=== PATIENT | female | born 1985 | race Caucasian/White ===

== ENCOUNTER → 2016-07-13 | Outpatient (CLI) | payer OTHER | LOC: FIMAGING 15:42 | PROVIDERS: ATTEND Nurse Practitioner Women's Health | DX: Z30.431 Encounter for routine checking of intrauterine contraceptive device (principal) ==

== ENCOUNTER 2016-07-24 06:59 | Day surgery (SDC) | payer OTHER ==
--- NOTE | 2016-07-14 16:52 | GHP ---
[f rep st] PREOP HISTORY AND PHYSICAL DATE OF ADMISSION: 07/24/2016 ADMITTING DIAGNOSIS: Displaced IUD. HISTORY OF PRESENT ILLNESS: The patient is a 31-year-old, 2, para 2, who presents to my office on July 13 for IUD followup that was inserted June 08. The patient presents with some discomfort and is concerned she cannot feel the strings. The patient states she had cramping one week after insertion. Now has intermittent random cramping. She did have a normal menses a week ago and last menstrual period 07/06/2016. On pelvic exam, the IUD strings were not seen or palpated. The patient did get an ultrasound in the office that reveals no IUD in the uterus and a simple right ovarian cyst. Negative test. The patient then went on to get a KUB that showed the IUD in the left hemipelvis asymmetrically positioned suggesting possible extrauterine positioning in the peritoneal cavity. Patient is asymptomatic at this time. Denies any cramping or pain and denies any bleeding. The patient is leaving for [place] in 2 days. She paid a lot of money for this trip. Discussed risks and recommend the patient not go to [place]. Patient does understand all the risks and wants to go to [place], and will be back in a few days and will return to the office. Discussed the need for surgical removal of the displaced IUD, she agrees and will have the procedure done when she gets back into town. Pt still desires Mirena IUD and wants it placed under u/s guidance. 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 She says she has always had irregular , heavy menstrual cycles and bleeds for 6 to 7 days. The patient denies a history of abnormal Pap smears. Last pap smear August 2015 was normal. She denies any exposure to sexually transmitted diseases. PAST OB HISTORY: Full-term, uncomplicated vaginal delivery in 2002. Another full-term, uncomplicated vaginal delivery in 2008. PAST MEDICAL HISTORY: Depression. SURGICAL HISTORY: Unremarkable. MEDICATIONS: Fluoxetine. ALLERGIES: No known drug allergies. SOCIAL HISTORY: Patient is . Lives with her and their 2 children. Denies any alcohol, tobacco, or illicit drug use. 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 FAMILY HISTORY: Father has type 2 diabetes, stroke, alcoholism. Mother with hypothyroidism. STUDIES: Pelvic ultrasound showed no IUD within the uterus, and a right simple ovarian cyst. KUB revealed an intrauterine device is present within the left hemipelvis asymmetrically positioned suggesting possible extrauterine positioning, and located within the peritoneal cavity. PHYSICAL EXAMINATION: VITAL SIGNS: On admission, stable. The patient is afebrile. GENERAL: Well-nourished well-developed female, alert, oriented x3. No apparent distress. CARDIOVASCULAR: Regular rate and rhythm. LUNGS: Clear to auscultation. ABDOMEN: Soft, nondistended, nontender. PELVIC EXAM: Deferred. LABS: None. ASSESSMENT: The patient is a 31-year-old, 2, para 2, with a displaced intrauterine device. PLAN: 1. Discussed surgery, diagnostic laparoscopy, its limitations, n.p.o. status, preop and postop recovery. 2. Surgical consents obtained. Discussed risks, benefits, alternatives with the patient including but not limited to, bleeding, infection, damage to surrounding organs. Patient understands all risks at this time and wants to proceed with surgery. 3. Antibiotics risk control specialist to OR. 4. SCDs for DVT prophylaxis. /[id number]/MODL MTDD
[~2016-07-24 06:59] MED LIST: ceFAZolin 2 GM/DEXTROSE 100 ML IV ONE
[2016-07-24] MEDS ORDERED: BUPIVACAINE 0.25% 30 ML SDV ONE (07:09)
[2016-07-24] MEDS ORDERED: SILVER NITRATE APPLICATOR 1 APPL TP ONE (07:09)
[2016-07-24] MEDS ORDERED: LIDOCAINE 1% 2 ML INJ ONE (07:32)
[2016-07-24] MEDS ORDERED: LR 1,000 ML IV ONE (07:54)
[2016-07-24] MEDS ORDERED: MIDAZOLAM 2 MG/2 ML VIAL ONE (08:08)
[2016-07-24] MEDS ORDERED: PROPOFOL 200 MG/20 ML VIAL ONE ×2 (08:24→08:29)
[2016-07-24] MEDS ORDERED: LIDOCAINE 2% 100 MG/5 ML SYR ONE (08:24)
[2016-07-24] MEDS ORDERED: fentaNYL 100 MCG/2 ML INJ ONE ×2 (08:24→08:46)
[2016-07-24] MEDS ORDERED: ROCURONIUM 50 MG/5 ML VIAL ONE (08:24)
[2016-07-24] MEDS ORDERED: KETOROLAC 30 MG/1 ML SDV ONE (09:36)
[2016-07-24] MEDS ORDERED: SUGAMMADEX SODIUM 200 MG/2 ML VIAL IVP ONE (09:36)
[2016-07-24] MEDS ORDERED: ONDANSETRON 4 MG/2 ML VIAL ONE (09:36)
[2016-07-24] MEDS ORDERED: MEPERIDINE 25 MG/ML SYR ONE (10:43)
[2016-07-24] MEDS ORDERED: HYDROCODONE/APAP 5/325 TAB ONE (12:16)
--- NOTE | 2016-07-24 17:05 | GOP ---
[f rep st] OPERATIVE REPORT DATE OF OPERATION: SURGEON: Leah Grider DO WELDER OXYHYDROGEN: None. ANESTHESIA: General endotracheal. PREOPERATIVE DIAGNOSIS: Displaced intrauterine device. POSTOPERATIVE DIAGNOSIS: Displaced intrauterine device. PROCEDURE PERFORMED: Diagnostic laparoscopy with removal of displaced intrauterine device. FINDINGS: On Bimanual exam: Normal size uterus and normal adnexa. No IUD strings palpated. Operative findings: Grossly normal-appearing uterus, tubes, bilateral ovaries. IUD was not seen in the pelvis or in the posterior cul-de- sac. IUD was noted embedded in the omentum with strings seen. Upper abdomen was grossly normal-appearing. SPECIMENS: None. ESTIMATED BLOOD LOSS: 10 cc. INDICATIONS: Patient is a 31-year-old 2, para 2, who presented to the office for IUD string check and was noted to have no IUD strings seen on pelvic exam. She then went to get an ultrasound, which visualized no IUD within the uterus. The patient then went on to have a KUB which noticed the IUD extra uterine position in the hemipelvis. The patient is asymptomatic at this time. Denies any cramping. Having some spotting but no heavy vaginal bleeding. Discussed with the patient the IUD is not in the proper location and is not effective for control, and we need to proceed to surgery for removal of IUD. The patient understands and wants to proceed with surgery at this time. She is interested in having another IUD placed under ultrasound guidance. DESCRIPTION OF PROCEDURE: The patient was taken to the operating room, where general anesthesia was obtained without difficulty. The patient was placed in dorsal lithotomy position, prepped and draped in the usual sterile manner. A Woody catheter was placed in her bladder. Open-sided speculum was placed in the vagina, anterior lip of the cervix grasped with a single-tooth tenaculum. The uterus then sounded to 10 cm and dilated with Hegar dilators. A Hulka clamp was then advanced to use as a means to manipulate the uterus. We then turned our attention to the patient's abdomen. Infraumbilical area was injected with 0.25% plain Marcaine and a 5 mm infraumbilical skin incision made with a knife. The Veress needle was inserted very carefully while tenting the abdominal wall. Aspiration was negative. The abdomen was insufflated with carbon dioxide. Pneumoperitoneum was obtained. After adequate insufflation, the Veress needle was removed. A 5 mm trocar was then introduced through the infraumbilical incision into the abdominal cavity directly with the laparoscope. The patient was then placed in Trendelenburg position. There was adequate visualization of the pelvic structures at this time. After injection of more local, another 5 mm skin incision was then made in the left lower quadrant and another 5 mm skin incision was made in the right lower quadrant. Atraumatic trocars were then placed. The pelvic findings were noted as above. At this time, using the Harmonic scalpel, the IUD was dissected from the omentum without difficulty. The IUD was removed intact with 2 arms and strings attached. We did visualize the area of the omentum where the IUD was embedded and there was some bleeding noted. The area was cauterized multiple times and then Nickie was placed for further hemostasis. The abdomen and pelvis was copiously irrigated with normal saline. Hemostasis was noted. All instruments were then removed from the abdomen, and the skin incisions of the 5 mm ports were closed with 3-0 Vicryl and then covered with Steri-Strips and Band -Aids. Patient tolerated the procedure well. No complications. Sponge, lap, and needle counts were correct x2. Patient was then awakened, taken out of dorsal lithotomy position, taken to the recovery room in stable condition. IV FLUIDS: 500 cc LR. URINE OUTPUT: 50 cc of clear urine at the end of the procedure. /[id number]/MODL MTDD
== END 2016-07-24 13:10 | disposition home or self-care (01) ==
LOC: FSGY 06:59
PROVIDERS: ATTEND Obstetrics & Gynecology
PROC: 0WPJ4YZ Removal of Other Device from Pelvic Cavity, Percutaneous Endoscopic Approach (ICD-10-PCS; principal; 2016-07-24 08:30)
DX: T83.32XA Displacement of intrauterine contraceptive device, initial encounter (principal); F32.9 Major depressive disorder, single episode, unspecified; N83.201 Unspecified ovarian cyst, right side
CPT/HCPCS: J0690; J1885; J2001; J2250; J2405; J2704; J3010